=== PATIENT | female | born 1995 | race Caucasian/White ===

== ENCOUNTER 2017-01-01 10:21 | Emergency (ER) | payer SELFPAY ==
--- NOTE | 2017-01-01 11:19 | UC ---
- HPI Summary HPI Summary: 21 year old female 11 weeks presents with complains of severe abdominal cramping. - History of Current Complaint Stated Complaint: 11 WKS PREG-CRAMPING Time Seen by Provider: 01/01/17 11:18 Hx Obtained From: Patient Onset/Duration: Started Days Ago Timing: Constant Severity: Moderate Current Severity: Moderate Location of Pain: Diffuse Character: Cramping - Assessment Hx Now: No - Allergies/Home Medications Allergies/Adverse Reactions: Allergies Allergy/AdvReac Type Severity Reaction Status Date / Time No Known Allergies Allergy Verified 01/01/17 11:14 Home Medications: Home Medications Vit W/ Docusate-Fe Fu [ 19] 1 tab PO DAILY 01/01/17 [History Confirmed 01/01/17] PMH/Surg Hx/FS Hx/Imm Hx Previously Healthy: Yes - Surgical History Surgery Procedure, Year, and Place: CORTISONE INJECTION OF RIGHT SHOULDER Infectious Disease History: Denies: Hx Clostridium Difficile, Hx Hepatitis, Hx Human Immunodeficiency Virus (HIV), Hx of Known/Suspected MRSA, Hx Shingles, Hx Tuberculosis, Hx Known/ Suspected VRE, Hx Known/Suspected VRSA, History Other Infectious Disease - Social History Alcohol Use: None Substance Use Type: Reports: None Smoking Status (MU): Heavy Every Day Tobacco Smoker Type: Cigarettes Amount Used/How Often: 1 PPD Length of Time of Smoking/Using Tobacco: 2 years Have You Smoked in the Last Year: Yes Review of Systems Constitutional: Negative Skin: Negative Eyes: Negative ENT: Negative Respiratory: Negative Cardiovascular: Negative Gastrointestinal: Abdominal Pain Genitourinary: Negative Motor: Negative Neurovascular: Negative Musculoskeletal: Negative Neurological: Negative Psychological: Negative All Other Systems Reviewed And Are Negative: Yes Physical Exam - Physical Exam Triage Information Reviewed: Yes Vital Signs Reviewed: Yes Appearance: Positive: Pain Distress Skin: Positive: Warm Head/Face: Positive: Normal Head/Face Inspection Eyes: Positive: Normal ENT: Positive: Normal ENT inspection Neck: Positive: Supple Respiratory/Lung Sounds: Positive: Clear to Auscultation Cardiovascular: Positive: Normal Abdomen Description: Positive: Nontender Bowel Sounds: Positive: Present Musculoskeletal: Positive: Normal Neurological: Positive: Normal Psychiatric: Positive: Normal Course/Dx - Diagnoses Provider Diagnoses: Abdominal cramping affecting Discharge - Discharge Plan Condition: Stable Disposition: HOME Referrals: Robert Gtz MD [Medical Doctor] - Additional Instructions: PLEASE GO TO ER FOR CRAMPING WITH
[2017-01-01 11:20] VITALS: BP 97/57
== END 2017-01-01 11:32 | disposition home or self-care (01) ==
LOC: UCCORT 10:21
DX: O26.891 Other specified pregnancy related conditions, first trimester (principal); R10.84 Generalized abdominal pain; Z3A.11 11 weeks gestation of pregnancy; F17.210 Nicotine dependence, cigarettes, uncomplicated
CPT/HCPCS: 99211; G0463

== ENCOUNTER 2017-01-11 16:53 | Emergency (ER) | payer SELFPAY ==
[2017-01-11 17:16] VITALS: BP 106/70
--- NOTE | 2017-01-11 17:38 | UC ---
HPI Wound/Suture Re-check - HPI Summary HPI Summary: 01/02/17 IN [employer] HAD CAESAR PLACED IN (ANTERIOR) SCALP (#4). ONE WEEK OF PRODUCTIVE COUGH, GIVEN INCENTIVE SPIROMETER, BUT HAS NOT BEEN USING IT. 12 WEEKS . NO FEVER. - History Of Current Complaint Chief Complaint: UCRespiratory Stated Complaint: CAESAR REMOVED/ COUGH Time Seen by Provider: 01/11/17 17:11 Hx Obtained From: Patient Hx Last Menstrual Period: 02/12/15 Onset/Duration: Sudden Onset - CAESAR, Gradual Onset - COUGH, Lasting Weeks, Still Present Severity: Moderate - Allergies/Home Medications Allergies/Adverse Reactions: Allergies Allergy/AdvReac Type Severity Reaction Status Date / Time No Known Allergies Allergy Verified 01/11/17 17:16 PMH/Surg Hx/FS Hx/Imm Hx Previously Healthy: Yes - Surgical History Surgical History: Yes Surgery Procedure, Year, and Place: CORTISONE INJECTION OF RIGHT SHOULDER - Family History Known Family History: Negative: Respiratory Disease - Social History Occupation: Employed Full-time Lives: With Family Alcohol Use: None Substance Use Type: None Smoking Status (MU): Heavy Every Day Tobacco Smoker Type: Cigarettes Amount Used/How Often: 1/2 Length of Time of Smoking/Using Tobacco: 2 years Have You Smoked in the Last Year: Yes Cessation Counseling: Patient Advised to Stop - Immunization History Most Recent Influenza Vaccination: Current for Vaccination Up to Date: Yes Review of Systems Constitutional: Negative Skin: Other - FOUR CAESAR IN ATERIOR SCALP Eyes: Negative ENT: Negative Respiratory: Cough Cardiovascular: Negative Gastrointestinal: Negative Genitourinary: Negative Motor: Negative Neurovascular: Negative Musculoskeletal: Negative Neurological: Negative Psychological: Negative All Other Systems Reviewed And Are Negative: Yes Physical Exam Triage Information Reviewed: Yes Appearance: Well-Appearing, No Pain Distress, Well-Nourished Vital Signs: Initial Vital Signs Temp 98.3 F 01/11/17 17:10 Pulse 87 01/11/17 17:10 Resp 14 01/11/17 17:10 BP 106/70 01/11/17 17:10 Pulse Ox 100 01/11/17 17:10 Vital Signs Reviewed: Yes Eye Exam: Normal ENT Exam: Normal ENT: Positive: Normal ENT inspection, Hearing grossly normal, Pharynx normal Dental Exam: Normal Neck exam: Normal Neck: Positive: Supple, Nontender, No Lymphadenopathy Respiratory Exam: Other - COUGH Respiratory: Positive: Chest non-tender, No respiratory distress, No accessory muscle use, Wheezing Cardiovascular Exam: Normal Cardiovascular: Positive: RRR, No Murmur, Pulses Normal Abdominal Exam: Normal Musculoskeletal Exam: Normal Neurological Exam: Normal Psychological Exam: Normal Skin: Positive: Other - FOUR CAESAR IN HEALING LACERATION ANTERIOR SCALP Procedures - Procedure Summary Procedure Summary: FOUR CAESAR REMOVED FROM HEALING LACERATION ON ANTERIOR SCALP USING STAPLE REMOVER. PATIENT TOLERATED PROCEDURE WELL Course/Dx - Differential Dx - Laceration/Wound Differential Diagnoses: Suture Removal Provider Diagnoses: STAPLE REMOVAL ANTERIOR SCALP; BRONCHITIS WITH BRONCHOSPASM Discharge - Discharge Plan Condition: Stable Disposition: HOME Prescriptions: Albuterol HFA INHALER* [Ventolin HFA Inhaler*] 1 puff INH Q6H PRN #1 mdi PRN Reason: Wheezing Azithromycin TAB* [Zithromax TAB (Z-PHILL) 250 mg #6 tabs] 250 mg PO DAILY #6 tab Patient Education Materials: Acute Bronchitis (ED), Bronchospasm (ED), Staple Care (ED) Referrals: [facility] [Outside] No Primary Care Phys,NOPCP [Primary Care Provider] -
== END 2017-01-11 17:38 | disposition home or self-care (01) ==
LOC: UCCORT 16:53
DX: Z48.02 Encounter for removal of sutures (principal); J20.9 Acute bronchitis, unspecified
CPT/HCPCS: 99212; G0463

== ENCOUNTER 2017-09-08 13:44 | Emergency (ER) | payer BC, OTHER ==
[2017-09-08 14:12] VITALS: BP 102/65
--- NOTE | 2017-09-08 14:15 | UC ---
Throat Pain/Nasal Walter HPI - HPI Summary HPI Summary: Pt presents with 5 days of sinus pain/pressure/congestion and a productive cough. She has not taken anything OTC for this, but is currently on clindamycin for BV. Her last dose of clindamycin is tomorrow. Denies fever, chills, sore throat, SOB, chest pain, abdominal pain, n/v/d/c. - History of Current Complaint Chief Complaint: UCRespiratory Stated Complaint: UPPER RESPIRATORY Time Seen by Provider: 09/08/17 14:15 Hx Obtained From: Patient Hx Last Menstrual Period: 09/07/17 Onset/Duration: Gradual Onset Severity: Mild Pain Intensity: 3 Pain Scale Used: 0-10 Numeric Cough: Productive - Allergies/Home Medications Allergies/Adverse Reactions: Allergies Allergy/AdvReac Type Severity Reaction Status Date / Time No Known Allergies Allergy Verified 09/08/17 14:01 Home Medications: Home Medications Clindamycin Cap(NF) [Clindamycin Cap 300 mg Cap(NF)] 300 mg PO BID 09/08/17 [ History Confirmed 09/08/17] Oral Contraceptive 1 tab PO DAILY 09/08/17 [History] PMH/Surg Hx/FS Hx/Imm Hx - Additional Past Medical History Additional PMH: None Previously Healthy: Yes - Surgical History Surgical History: Yes Surgery Procedure, Year, and Place: CORTISONE INJECTION OF RIGHT SHOULDER - Family History Known Family History: Negative: Respiratory Disease - Social History Occupation: Employed Full-time Lives: With Family Alcohol Use: None Substance Use Type: None Smoking Status (MU): Light Every Day Tobacco Smoker Type: Cigarettes Amount Used/How Often: 2 CIGS A DAY Length of Time of Smoking/Using Tobacco: 2 years Have You Smoked in the Last Year: Yes - Immunization History Most Recent Influenza Vaccination: Current for season Vaccination Up to Date: Yes Review of Systems Constitutional: Negative Skin: Negative Eyes: Negative ENT: Nasal Discharge, Sinus Congestion, Sinus Pain/Tenderness Respiratory: Cough Cardiovascular: Negative Gastrointestinal: Negative Musculoskeletal: Negative Neurological: Negative Psychological: Negative All Other Systems Reviewed And Are Negative: Yes Physical Exam - Summary Physical Exam Summary: GENERAL: Mildly ill appearing. NAD SKIN: No rashes, sores, ulcers, masses, lesions. HEENT: NC/AT. Conjunctiva clear without inflammation or discharge. TMs intact , no bulging, erythema, or edema. Nasal mucosa mildly swollen and erythematous with yellow/clear discharge. TTP maxillary and frontal sinus. Posterior oropharynx without exudates, erythema, or tonsillar enlargement. Uvula midline. NECK: Supple. Nontender. No lymphadenopathy. CHEST: Moderate wheezing throughout. No r/r. No accessory muscle use. Breathing comfortably and in no distress. CV: RRR. Without m/r/g. Pulses intact. Brisk cap refill. NEURO: Alert. CN II-XII grossly intact. PSYCH: Age appropriate behavior. Triage Information Reviewed: Yes Vital Signs: Initial Vital Signs Temp 98.2 F 09/08/17 14:04 Pulse 103 09/08/17 14:04 Resp 20 09/08/17 14:04 BP 102/65 09/08/17 14:04 Pulse Ox 97 09/08/17 14:04 Throat Pain/Nasal Course/Dx - Course Course Of Treatment: XR: IMPRESSION: NO ACTIVE CARDIOPULMONARY DISEASE. Pt was given a Duoneb treatment and had subjective and objective improvement of breathing. Will rx for Augmentin and advise her to stop if she develops diarrhea. - Differential Dx/Diagnosis Provider Diagnoses: Sinusitis. Bronchitis Discharge - Sign-Out/Discharge Documenting (check all that apply): Discharge/Admit/Transfer - Discharge Plan Condition: Stable Disposition: HOME Prescriptions: Amoxicillin/Clavulanate TAB* [Augmentin TAB 875*] 875 mg PO BID #14 tab Patient Education Materials: Sinusitis (ED), Acute Bronchitis (ED) Referrals: No Primary Care Phys,NOPCP [Primary Care Provider] - Additional Instructions: If you develop a fever, shortness of breath, chest pain, new or worsening symptoms - please call your PCP or go to the ED. - Billing Disposition and Condition Condition: STABLE Disposition: HOME
[2017-09-08] MEDS ORDERED: Albuterol/Ipratropium NEB.SOL* Albuterol 2.5 MG/Ipratropium 0.5 MG 3 ML INH ONE (14:20)
--- NOTE | 2017-09-08 14:42 | RAD ---
HISTORY: Cough COMPARISONS: None VIEWS: 4: Frontal dual-energy and lateral views of the chest. FINDINGS: CARDIOMEDIASTINAL SILHOUETTE: The cardiomediastinal silhouette is normal. HEIDI: The heidi are normal. PLEURA: The costophrenic angles are sharp. No pleural abnormalities are noted. LUNG PARENCHYMA: The lungs are clear. ABDOMEN: The upper abdomen is clear. There is no subphrenic gas. BONES AND SOFT TISSUES: No bone or soft tissue abnormalities are noted. OTHER: None. IMPRESSION: NO ACTIVE CARDIOPULMONARY DISEASE.
== END 2017-09-08 15:02 | disposition home or self-care (01) ==
LOC: UCCORT 13:44
DX: J32.9 Chronic sinusitis, unspecified (principal); J40 Bronchitis, not specified as acute or chronic; F17.210 Nicotine dependence, cigarettes, uncomplicated
CPT/HCPCS: 71046; 99212; A9270-GY; G0463

== ENCOUNTER 2018-01-01 14:06 | Emergency (ER) | payer BC, OTHER ==
[2018-01-01 14:26] VITALS: BP 121/59
--- NOTE | 2018-01-01 14:50 | UC ---
Respiratory Complaint HPI - HPI Summary HPI Summary: C/O cough with shortness of breath and chest pain with coughing over the last 3 days. - History of Current Complaint Chief Complaint: UCRespiratory Stated Complaint: SORE THROAT,UPPER RESPITORY Time Seen by Provider: 01/01/18 14:42 Hx Obtained From: Patient Hx Last Menstrual Period: 09/07/17 ?: No Onset/Duration: Sudden Onset, Lasting Days - 3, Worse Since - onset Timing: Constant Severity Initially: Mild Severity Currently: Moderate Pain Intensity: 0 Character: Cough: Productive Alleviating Factors: Nothing Associated Signs And Symptoms: Positive: Wheezing, URI, Nasal Congestion, Sinus Discomfort - Allergies/Home Medications Allergies/Adverse Reactions: Allergies Allergy/AdvReac Type Severity Reaction Status Date / Time No Known Allergies Allergy Verified 01/01/18 14:22 PMH/Surg Hx/FS Hx/Imm Hx - Surgical History Surgical History: Yes Surgery Procedure, Year, and Place: CORTISONE INJECTION OF RIGHT SHOULDER - Family History Known Family History: Positive: Cardiac Disease, Hypertension, Diabetes Negative: Respiratory Disease - Social History Occupation: Employed Full-time Lives: Alone - with daughter Alcohol Use: Weekly Substance Use Type: None Smoking Status (MU): Heavy Every Day Tobacco Smoker Type: Cigarettes Amount Used/How Often: 1 PPD Length of Time of Smoking/Using Tobacco: 2 years Have You Smoked in the Last Year: Yes Household Exposure Type: Cigarettes Cessation Counseling: Patient Advised to Stop - Immunization History Most Recent Influenza Vaccination: Current for Most Recent Tetanus Shot: UTD Vaccination Up to Date: Yes Review of Systems ENT: Sore Throat, Sinus Congestion, Sinus Pain/Tenderness Respiratory: Shortness Of Breath, Cough Cardiovascular: Chest Pain - with cough Is Patient Immunocompromised?: No All Other Systems Reviewed And Are Negative: Yes Physical Exam Triage Information Reviewed: Yes Appearance: No Pain Distress, Well-Nourished, Ill-Appearing - mild Vital Signs: Initial Vital Signs Temp 97.5 F 01/01/18 14:23 Pulse 87 01/01/18 14:23 Resp 21 01/01/18 14:23 BP 121/59 01/01/18 14:23 Pulse Ox 98 01/01/18 14:23 Vital Signs Reviewed: Yes Eyes: Positive: Conjunctiva Clear ENT: Positive: Pharynx normal, Nasal congestion, TMs normal, Sinus tenderness Neck exam: Normal Respiratory: Positive: Wheezing - expiratory Cardiovascular Exam: Normal Musculoskeletal Exam: Normal Neurological Exam: Normal Psychological Exam: Normal Skin Exam: Normal Diagnostic Evaluation - Laboratory O2 Sat by Pulse Oximetry: 98 Respiratory Course/Dx - Differential Dx/Diagnosis Differential Diagnosis/HQI/PQRI: Asthma, Bronchitis, Lower Resp Infection, Sinusitis Provider Diagnoses: Acute URI. Acute sinusitis. Acute bronchospasm Discharge - Sign-Out/Discharge Documenting (check all that apply): Patient Departure - Discharge Plan Condition: Stable Disposition: HOME Prescriptions: Albuterol HFA INHALER* [Ventolin HFA Inhaler*] 2 puff INH Q4H PRN #1 mdi PRN Reason: Wheezing predniSONE [Prednisone 20 MG TAB] 20 mg PO DAILY #18 tablet Sulfamethox/Trimethoprim DS* [Bactrim DS 800/160 TAB*] 1 tab PO BID #20 tab Patient Education Materials: Upper Respiratory Infection (ED), Wheezing (ED), Sinusitis (ED), Sulfamethoxazole/Trimethoprim (By mouth), Prednisone (By mouth) Referrals: No Primary Care Phys,NOPCP [Primary Care Provider] - Additional Instructions: Smoking Cessation Tricks. 1. Cut down by 1 cigarette per day every 2-3 days. Write the number of smokes for that day on the calendar. 2. Identify triggers to smoking: after meals, on the phone, in the car, with coffee, on breaks at work, etc. 3. Formulate a plan with a behavior to replace the smoking. Fireballs in the car , doodle pad on the phone, flavored creamer for the coffee, go for a walk after a meal or on break at work. 4. For stress smokes do deep breathing relaxation. Breath deep in through the nose hold the breath in for a few seconds then breath out slowly through the mouth. NASAL SPRAYS AND DROPS: Afrin in the PUMP/ MIST bottle (Get generic 12 hours nasal decongestant spray). Tilt your head down and look at the floor while doing a strong sniff with the spray. Decongestant nasal sprays and drops often give dramatic relief from congestion. They are often recommended for patients with sinus infection to assist with sinus drainage. Persons with high blood pressure should consult the doctor before using these nasal sprays. Afrin and Girish-Synephrine are common [id number] preparations. They should not be used for more than five days, as "rebound" congestion can occur - - the congestion flares as the drug wears off. A way of dealing with this rebound congestion problem is to medicate only one nostril each time, allowing the other nostril to recover from the medicine' s effects. When you no longer need the drug during the day, spray only one nostril each night. This helps you sleep well without severe rebound congestion. Call the doctor if you develop severe headache, palpitations, or chest pain. - Billing Disposition and Condition Condition: STABLE Disposition: Home
== END 2018-01-01 15:23 | disposition home or self-care (01) ==
LOC: UCCORT 14:06
DX: J06.9 Acute upper respiratory infection, unspecified (principal); J01.90 Acute sinusitis, unspecified; J98.01 Acute bronchospasm; F17.210 Nicotine dependence, cigarettes, uncomplicated
CPT/HCPCS: 99212; G0463

== ENCOUNTER 2018-03-06 16:00 | Emergency (ER) | payer OTHER ==
[2018-03-06 16:31] VITALS: BP 111/67
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
== END 2018-03-06 17:22 | disposition home or self-care (01) ==
LOC: UCCORT 16:00
DX: N89.8 Other specified noninflammatory disorders of vagina (principal); Z72.51 High risk heterosexual behavior; F17.210 Nicotine dependence, cigarettes, uncomplicated
CPT/HCPCS: 36415; 86592; 86703; 87340; 87491; 87591; 99212; G0463

== ENCOUNTER 2018-09-10 14:19 | Emergency (ER) | payer SELFPAY ==
[2018-09-10 15:11] VITALS: BP 108/68
--- NOTE | 2018-09-10 15:12 | UC ---
Eye Complaint HPI - HPI Summary HPI Summary: 23 y/o female presents to the urgent care c/o left eye redness w/ a burning sensation for the past week. Pt states yesterday and this morning she woke up w / a yellowish crusting drainage from the left eye. Pt works in a Daycare. Pt denies visual disturbances, photophobia, AHUJA, fever, neck pain, SOB, chest pain, dizziness, abdominal pain, N/v/d. - History of Current Complaint Chief Complaint: UCEye Stated Complaint: L EYE CONCERN Time Seen by Provider: 09/10/18 15:11 Hx Obtained From: Patient Hx Last Menstrual Period: 08/27/18 Onset/Duration: Gradual Onset, Lasting Weeks - 1 week, Still Present, Worse Since - yesterday and this morning w/ yelowish crusting Timing: Constant Severity Initially: Mild Severity Currently: Moderate Pain Intensity: 5 - burning sensation Pain Scale Used: 0-10 Numeric Location of Injury: Conjunctiva - left conjunctiva redness and yellowish drainage Character: Foreign Body Sensation Aggravating Factor(s): Blinking Alleviating Factor(s): Nothing Associated Signs And Symptoms: Positive: Drainage (Purulent) - yellowish. Negative: Photophobia, Vision Impairment Bilateral, Fever, Swelling - Risk Factors Penetrating Injury Risk Factor: Negative Globe Rupture Risk Factors: Negative Acute Glaucoma Risk Factors: Negative Optic Artery Occlusion Risk Factors: Negative - Allergies/Home Medications Allergies/Adverse Reactions: Allergies Allergy/AdvReac Type Severity Reaction Status Date / Time No Known Allergies Allergy Verified 09/10/18 15:08 PMH/Surg Hx/FS Hx/Imm Hx Previously Healthy: Yes - Pt denies PMHX - Surgical History Surgical History: Yes Surgery Procedure, Year, and Place: CORTISONE INJECTION OF RIGHT SHOULDER - Family History Known Family History: Positive: Cardiac Disease, Hypertension, Diabetes Negative: Respiratory Disease Family History: epilepsy - Social History Occupation: Employed Full-time Lives: With Family Alcohol Use: Occasionally Substance Use Type: None Smoking Status (MU): Heavy Every Day Tobacco Smoker Type: Cigarettes Amount Used/How Often: 1 PPD Length of Time of Smoking/Using Tobacco: since age 17 Have You Smoked in the Last Year: Yes Household Exposure Type: Cigarettes - Immunization History Most Recent Influenza Vaccination: Current for season Most Recent Tetanus Shot: UTD Vaccination Up to Date: Yes Review of Systems All Other Systems Reviewed And Are Negative: Yes Constitutional: Positive: Negative Skin: Positive: Negative Eyes: Positive: Drainage - yellowish from left eye, Eye Redness - left eye. Negative: Blurred Vision, Diplopia, Photophobia ENT: Positive: Negative Respiratory: Positive: Negative Cardiovascular: Positive: Negative Gastrointestinal: Positive: Negative Genitourinary: Positive: Negative Motor: Positive: Negative Neurovascular: Positive: Negative Musculoskeletal: Positive: Negative Neurological: Positive: Negative Psychological: Positive: Negative Is Patient Immunocompromised?: No Physical Exam - Summary Physical Exam Summary: Vital Signs Reviewed: Yes General: Well appearing, well nourished female in no apparent pain distress Eyes: Positive: Left Conjunctiva Inflamed - Visual acuity: WNL,Visual lopez: full to confrontation. PERRLA, EOMI intact w/out limitation or complaint of pain. eyelashes clear. mild tearing and yellowish drainage observed. No ciliary flush. No chemosis, No photophobia. Normal fundoscopic exam; no proptosis, exophthalmos, nystagmus. ENT: Positive: Normal ENT inspection, Hearing grossly normal, Pharynx normal, Nasal congestion, Nasal drainage - clear, TMs normal - B/L external ear canal clear , TM's WNL. Negative: Tonsillar swelling, Tonsillar exudate Neck: Positive: Supple, Nontender, No Lymphadenopathy Respiratory: Positive: Chest nontender, Lungs clear, Normal breath sounds, No respiratory distress Cardiovascular: Positive: RRR, No Murmur, Pulses Normal, Brisk Capillary Refill Abdomen Description: Positive: Nontender, No Organomegaly, Soft. Negative: CVA Tenderness (R), CVA Tenderness (L) Bowel Sounds: Positive: Present Musculoskeletal: Positive: Strength Intact, ROM Intact, No Edema Neurological Exam: Normal Psychological Exam: Normal Skin Exam: Normal Triage Information Reviewed: Yes Vital Signs: Initial Vital Signs Temp 97.6 F 09/10/18 15:09 Pulse 65 09/10/18 15:09 Resp 16 09/10/18 15:09 BP 108/68 09/10/18 15:09 Pulse Ox 99 09/10/18 15:09 Eye Complaint Course/Dx - Course Course Of Treatment: 23 y/o female presents to the urgent care c/o left eye redness w/ a burning sensation for the past week. Pt states yesterday and this morning she woke up w / a yellowish crusting drainage from the left eye. Pt works in a Daycare. Pt denies visual disturbances, photophobia, AHUJA, fever, neck pain, SOB, chest pain, dizziness, abdominal pain, N/v/d. Hx obtained. Pt w/ left eye bacterial conjunctivitis on examination. Pt Rx Ciprofloxacin ophthalmic drops for her bacterial conjunctivitis. Pt advised if symptoms do not improve, advised to return to the urgent care or f/u with P Director Of Medical Education Dr Askew for further evaluation and treatment. Advised to encourage hand washing to avoid spreading. D/c instructions explained. Pt understood and agreed w/ plan of care. - Differential Dx/Diagnosis Differential Diagnosis/HQI/PQRI: Conjunctivitis, Periorbital Cellulitis, Uveitis Provider Diagnosis: Acute bacterial conjunctivitis of left eye Discharge - Sign-Out/Discharge Documenting (check all that apply): Patient Departure - d/c home All imaging exams completed and their final reports reviewed: No Studies - Discharge Plan Condition: Stable Disposition: HOME Prescriptions: Ciprofloxacin 0.3% [email or web address]* [Cipro 0.3% Opth*] 1 drop LEFT EYE Q2H #1 btl Patient Education Materials: Conjunctivitis (ED) Forms: *Work Release Referrals: [facility] [[facility]] - 3 Days Skylar Askew MD [Medical Doctor] - If Needed Additional Instructions: 1-Please apply ophthalmic drops as instructed and finish the full course of treatment to avoid recurrent infection. Please encourage hand washing to avoid spreading to the other eye. 2-If you do not improve or if symptoms worsen please f/u with methane gas collection system operator Dr Askew for further evaluation and treatment - Billing Disposition and Condition Condition: STABLE Disposition: Home
== END 2018-09-10 15:33 | disposition home or self-care (01) ==
LOC: UCCORT 14:19
DX: H10.32 Unspecified acute conjunctivitis, left eye (principal); F17.210 Nicotine dependence, cigarettes, uncomplicated
CPT/HCPCS: 99212; G0463